=== PATIENT | male | born 1975 | race Caucasian/White ===

== ENCOUNTER 2016-04-17 12:15 | Emergency (ER) | payer BC | END 2016-04-17 14:54 | disposition home or self-care (01) | LOC: FASTR 12:15 | DX: K64.8 Other hemorrhoids (principal); F17.210 Nicotine dependence, cigarettes, uncomplicated; K21.9 Gastro-esophageal reflux disease without esophagitis; Z79.899 Other long term (current) drug therapy | CPT/HCPCS: 36415; 85025 ==